=== PATIENT | male | born 1990 | race Caucasian/White ===

== ENCOUNTER 2020-02-18 15:44 | Emergency (ER) | payer OTHER, SELFPAY ==
[2020-02-18 15:51] VITALS: BP 142/74; PULSE 86; RESP 14; TEMP 36.8; O2SAT 99
--- NOTE | 2020-02-18 15:56 | ED.URI ---
HPI - URI/Sore Throat General Chief Complaint: Upper Respiratory Infection Stated Complaint: sinus congestion/headache Time Seen by Provider: 02/18/20 15:56 Source: patient and RN notes reviewed Mode of arrival: ambulatory Limitations: no limitations History of Present Illness HPI Narrative: 21-year-old male presents with concern for frontal nasal pressure, congestion. Denies taking any medications for symptoms. He denies sore throat, ear pain, headache, fever, cough, shortness of breath. Reports mild rhinorrhea. MD elicited complaint: nasal congestion Related Data Home Medications Medication Instructions Recorded Confirmed buspirone 10 mg PO BID 10/06/19 02/18/20 escitalopram oxalate [Lexapro] 10 mg PO DAILY 10/06/19 02/18/20 Allergies Allergy/AdvReac Type Severity Reaction Status Date / Time No Known Allergies Allergy Verified 02/18/20 15:57 Review of Systems Review of Systems: Narrative: CONSTITUTIONAL: Denies malaise, chills, sweats, or fever. EYES: Denies visual changes, redness, or discharge. ENT: Reports rhinorrhea, congestion. Denies sinus pain, otalgia and sore throat. CARDIOVASCULAR: Denies chest pain, palpitations, or edema. RESPIRATORY: Denies cough or dyspnea. GASTROINTESTINAL: Denies abdominal pain, nausea, vomiting, diarrhea SKIN: Denies rash or itching. MUSCULOSKELETAL: Denies myalgia. NEUROLOGIC: Denies headache. All systems reviewed & are unremarkable except as noted in HPI and below PMFSH Past Medical History Medical History (Updated 02/18/20 @ 16:04 by Deya Swanson NP) Anxiety and depression No pertinent family history Ulcer Surgical History Surgical History (Updated 10/14/19 @ 14:02 by EASTON Salmon) H/O removal of cyst from abdominal Social History Social History (Updated 10/14/19 @ 13:54 by EASTON Salmon) Smoking status: Never smoker Comments At time of signature, agree with nursing past medical, surgical, social and family history. There is no relevant family history pertinent to the presenting complaint Exam Narrative: Exam Narrative: GENERAL: Well-appearing, well-nourished, and in no acute distress. HEAD: Normocephalic EYES: PERRLA, conjunctivae clear ENT: Nares clear, turbinates edematous and erythematous, clear discharge. Mucous membranes moist. TM pearly bello with dull light reflex bilaterally; no tragal tenderness. Oropharynx not erythematous without lesions. Tonsils not enlarged and without exudate, no drooling, no hoarseness, no trismus, uvula midline. NECK: Supple. No lymphadenopathy CHEST: Clear to auscultation, breath sounds equal. No wheezing, rhonchi, rales, or stridor. No respiratory distress, speaks in full sentences. HEART: Regular rate and rhythm. No murmur heard. SKIN: Warm, dry, no rash. NEURO: Alert and oriented x3. PSYCH: Normal mood and affect Course Course Emergency Course: Patient is aware of diagnosis, understands and agrees to treatment plan. Anticipatory guidance given. Patient agrees to follow-up as directed and is aware of reasons to seek care at the emergency department. Portions of this record may have been created with voice recognition software Vital Signs Vital signs: Vital Signs Temperature 98.3 F 02/18/20 15:51 Pulse Rate 86 02/18/20 15:51 Respiratory Rate 14 02/18/20 15:51 Blood Pressure 142/74 H 02/18/20 15:51 Pulse Oximetry 99 02/18/20 15:51 Temperature 98.3 F 02/18/20 15:51 Pulse Rate 86 02/18/20 15:51 Respiratory Rate 14 02/18/20 15:51 Blood Pressure 142/74 H 02/18/20 15:51 Pulse Oximetry 99 02/18/20 15:51 Reviewed. MDM - URI/Sore Throat MDM Narrative Medical decision making narrative: Differential diagnosis considered: Strep pharyngitis, allergic rhinitis, upper respiratory tract infection, sinusitis, rhinosinusitis, nasopharyngitis. viral pharyngitis, otitis media, otitis externa, pneumonia, bronchitis, viral cough syndrome, viral syndrome, and influenza. Exam f
== END 2020-02-18 16:11 | disposition home or self-care (01) ==
PROVIDERS: Emergency Provider Nurse Practitioner; PCP Family Medicine
DX: J00 Acute nasopharyngitis [common cold] (principal); J01.90 Acute sinusitis, unspecified; F41.9 Anxiety disorder, unspecified; F32.9 Major depressive disorder, single episode, unspecified
CPT/HCPCS: 99213; G0463

== ENCOUNTER 2020-03-03 11:59 | Emergency (ER) | payer OTHER, SELFPAY ==
[2020-03-03 12:05] VITALS: BP 134/82; PULSE 78; RESP 18; TEMP 37.1; O2SAT 98
--- NOTE | 2020-03-03 12:11 | ED.URI ---
HPI - URI/Sore Throat General Chief Complaint: Upper Respiratory Infection Stated Complaint: sinus pain/pressure Time Seen by Provider: 03/03/20 12:12 Source: patient and RN notes reviewed Mode of arrival: ambulatory Limitations: no limitations History of Present Illness HPI Narrative: 29-year-old male presents with concern for sinus pain, frontal pressure. Reports he was treated for sinusitis on February 17. Reports symptoms improved, however they are now back and have worsened. He denies fever, malaise, cough, body aches, shortness of breath. Reports taking Flonase, azelastine, Zyrtec-D. elicited complaint: nasal congestion Related Data Home Medications Medication Instructions Recorded Confirmed buspirone 10 mg PO BID 10/06/19 03/03/20 escitalopram oxalate [Lexapro] 10 mg PO DAILY 10/06/19 03/03/20 Allergies Allergy/AdvReac Type Severity Reaction Status Date / Time No Known Allergies Allergy Verified 03/03/20 12:16 Review of Systems Review of Systems: Narrative: CONSTITUTIONAL: Denies malaise, chills, sweats, or fever. EYES: Denies visual changes, redness, or discharge. ENT: Reports rhinorrhea, congestion, sinus pain, otalgia. Denies sore throat. CARDIOVASCULAR: Denies chest pain, palpitations, or edema. RESPIRATORY: Denies cough or dyspnea. GASTROINTESTINAL: Denies abdominal pain, nausea, vomiting, diarrhea SKIN: Denies rash or itching. MUSCULOSKELETAL: Denies myalgia. NEUROLOGIC: Reports headache. All systems reviewed & are unremarkable except as noted in HPI and below PMFSH Past Medical History Medical History (Updated 03/03/20 @ 12:18 by Deya Swanson NP) Anxiety and depression No pertinent family history Ulcer Surgical History Surgical History (Updated 10/14/19 @ 14:02 by EASTON Salmon) H/O removal of cyst from abdominal Social History Social History (Updated 10/14/19 @ 13:54 by EASTON Salmon) Smoking status: Never smoker Comments At time of signature, agree with nursing past medical, surgical, social and family history. There is no relevant family history pertinent to the presenting complaint Exam Narrative: Exam Narrative: GENERAL: Well-appearing, well-nourished, and in no acute distress. HEAD: Normocephalic EYES: PERRLA, conjunctivae clear ENT: Nares clear, turbinates edematous and erythematous, sinus tenderness. Mucous membranes moist. TM pearly bello with dull light reflex bilaterally; no tragal tenderness. Oropharynx not erythematous without lesions. Tonsils not enlarged and without exudate, no drooling, no hoarseness, no trismus, uvula midline. NECK: Supple. No lymphadenopathy CHEST: Clear to auscultation, breath sounds equal. No wheezing, rhonchi, rales, or stridor. No respiratory distress, speaks in full sentences. HEART: Regular rate and rhythm. No murmur heard. SKIN: Warm, dry, no rash. NEURO: Alert and oriented x3. PSYCH: Normal mood and affect Course Course Emergency Course: Patient is aware of diagnosis, understands and agrees to treatment plan. Anticipatory guidance given. Patient agrees to follow-up as directed and is aware of reasons to seek care at the emergency department. Portions of this record may have been created with voice recognition software Vital Signs Vital signs: Vital Signs Temperature 98.7 F 03/03/20 12:05 Pulse Rate 78 03/03/20 12:05 Respiratory Rate 18 03/03/20 12:05 Blood Pressure 134/82 03/03/20 12:05 Pulse Oximetry 98 03/03/20 12:05 Temperature 98.7 F 03/03/20 12:05 Pulse Rate 78 03/03/20 12:05 Respiratory Rate 18 03/03/20 12:05 Blood Pressure 134/82 03/03/20 12:05 Pulse Oximetry 98 03/03/20 12:05 Reviewed. Pt has been instructed to follow up with his primary care provider within the next week regarding his elevated blood pressure today. MDM - URI/Sore Throat MDM Narrative Medical decision making narrative: Differential diagnosis considered: Strep pharyngitis, allergic rhinitis, upper
== END 2020-03-03 12:20 | disposition home or self-care (01) ==
PROVIDERS: Emergency Provider Nurse Practitioner; PCP Family Medicine
DX: J32.8 Other chronic sinusitis (principal); B96.89 Other specified bacterial agents as the cause of diseases classified elsewhere; F41.9 Anxiety disorder, unspecified; F32.9 Major depressive disorder, single episode, unspecified
CPT/HCPCS: 99213; G0463

== ENCOUNTER 2020-03-10 13:24 | Emergency (ER) | payer OTHER, SELFPAY ==
[2020-03-10 13:35] VITALS: BP 132/80; PULSE 89; RESP 20; TEMP 36.9; O2SAT 98
== END 2020-03-10 14:20 | disposition home or self-care (01) ==
PROVIDERS: Emergency Provider Nurse Practitioner; PCP Family Medicine
DX: R19.7 Diarrhea, unspecified (principal); F32.9 Major depressive disorder, single episode, unspecified
CPT/HCPCS: 99213; G0463

== ENCOUNTER 2022-02-07 15:50 | Emergency (ER) | payer SELFPAY ==
[2022-02-07 16:01] VITALS: BP 141/81; PULSE 99; RESP 16; TEMP 37.5; O2SAT 98
[2022-02-07 16:07] VITALS: BP 141/81; PULSE 99; RESP 16; TEMP 37.5; O2SAT 98
--- NOTE | 2022-02-07 16:24 | ED.URI ---
HPI - URI/Sore Throat General Chief Complaint: Upper Respiratory Infection Stated Complaint: Sore Throat Time Seen by Provider: 02/07/22 16:08 Source: patient and RN notes reviewed Mode of arrival: ambulatory Limitations: no limitations History of Present Illness HPI Narrative: Patient presents today with a 3-day history of sore throat that is worse in the morning, postnasal drip, sinus pressure and ear pressure. Denies shortness of breath, fever, cough. He currently rates his sore throat 2/10 and has been taking a decongestant with some relief. He is a non-smoker. He has not been vaccinated against COVID-19. MD elicited complaint: nasal congestion and sinus pain Related Data Home Medications Medication Instructions Recorded Confirmed No Home Medications 02/07/22 02/07/22 Allergies Allergy/AdvReac Type Severity Reaction Status Date / Time No Known Allergies Allergy Verified 02/07/22 16:07 Review of Systems Review of Systems: CONSTITUTIONAL: Denies body aches, fever, chills, or sweats. EYES: Denies visual changes, redness, or discharge. ENT: Denies rhinorrhea. + Sore throat, postnasal drip, sinus pressure, congestion, ear pressure CARDIOVASCULAR: Denies chest pain, palpitations, or edema. RESPIRATORY: Denies cough or dyspnea. GASTROINTESTINAL: Denies abdominal pain, nausea, vomiting, or diarrhea. GENITOURINARY: Denies dysuria or hematuria. SKIN: Denies rash, itching, or wounds. MUSCULOSKELETAL: Denies back pain, joint pain, or myalgia. NEUROLOGIC: Denies headache, numbness, tingling, or weakness. PSYCH: Denies depression or anxiety. [facility] Past Medical History Medical History Anxiety and depression No pertinent family history Ulcer Surgical History Surgical History H/O removal of cyst from abdominal Social History Social History Smoking status: Never smoker Comments At time of signature, I have reviewed and agree with nursing past medical, surgical, social and family history unless otherwise noted. Please see nursing chart for further information. There is no relevant family history pertinent to the presenting complaint Exam Narrative: GENERAL: Well-appearing, well-nourished, and in no acute distress. HEAD: Normocephalic, atraumatic. EYES: EOMI. No redness or drainage. Conjunctivae normal. ENT: Mucous membranes pink and moist. Nares clear. No rhinorrhea. TMs normal bilaterally. Throat normal. Uvula midline. NECK: Normal AROM. Supple. No lymphadenopathy. CHEST: No respiratory distress. Clear to auscultation. HEART: Regular rate and rhythm. No murmur appreciated. Normal peripheral pulses. EXTREMITIES: Normal range of motion. No edema. SKIN: Warm, dry, no rash. Capillary refill normal. Normal skin turgor. NEURO: No focal deficits. Alert and oriented x3. Gait steady. PSYCH: Normal affect. No signs of depression or anxiety. Course Course Level of Care: Express Care Visit Vital Signs Vital signs: Vital Signs Temperature 99.5 F 02/07/22 16:01 Pulse Rate 99 02/07/22 16:01 Respiratory Rate 16 02/07/22 16:01 Blood Pressure 141/81 H 02/07/22 16:01 Pulse Oximetry 98 02/07/22 16:01 Temperature 99.5 F 02/07/22 16:07 Pulse Rate 99 02/07/22 16:07 Respiratory Rate 16 02/07/22 16:07 Blood Pressure 141/81 H 02/07/22 16:07 Pulse Oximetry 98 02/07/22 16:07 Reviewed. Pt has been instructed to follow up with his PCP regarding his elevated blood pressure today. MDM - URI/Sore Throat Differential Diagnosis Differential diagnosis: Likely upper respiratory infection, sinusitis, viral infection, pharyngitis and other (Strep throat) Lab Data Attestation: I reviewed the patient's lab results. Labs: Strep Screen Presumptive Negative *(Ref
== END 2022-02-07 16:35 | disposition home or self-care (01) ==
PROVIDERS: Emergency Provider Nurse Practitioner; PCP Family Medicine
DX: J06.9 Acute upper respiratory infection, unspecified (principal); Z28.310 Unvaccinated for COVID-19
CPT/HCPCS: 87081; 87880; 99213; G0463

== ENCOUNTER 2022-07-02 13:47 | Emergency (ER) | payer OTHER, SELFPAY ==
--- NOTE | 2022-07-02 13:49 | ED.URI ---
HPI - URI/Sore Throat General Chief Complaint: Ear Stated Complaint: sore throat ear pressure Time Seen by Provider: 07/02/22 13:49 Source: patient and RN notes reviewed History of Present Illness HPI Narrative: Patient is a 31-year-old male who presents the urgent care with complaints of bilateral ear pressure worse on the right, sore throat and nasal congestion. Patient states he has not taken anything since and symptoms started over the weekend and states that his sore throat improves during the day. Patient states he does sleep with a fan on. States that he has tried Claritin and Zyrtec in the past without any improvement. Patient denies any ill exposures and denies of any fevers, nausea or vomiting. No other acute complaints. No acute distress noted. Patient aware of the plan of care. Some parts of this dictation were generated by voice recognition software and may contain typographical and/or grammatical inaccuracies. Related Data Allergies Allergy/AdvReac Type Severity Reaction Status Date / Time No Known Allergies Allergy Verified 07/02/22 13:57 Review of Systems Review of Systems: CONSTITUTIONAL: Denies fever, chills, or sweats. EYES: Denies visual changes, redness, or discharge. ENT: Reports of nasal congestion, sore throat and otalgia CARDIOVASCULAR: Denies chest pain, palpitations, or edema. RESPIRATORY: Denies cough or dyspnea. GASTROINTESTINAL: Denies abdominal pain, nausea, vomiting, or diarrhea. GENITOURINARY: Denies dysuria or hematuria. SKIN: Denies rash or itching. MUSCULOSKELETAL: Denies back pain, joint pain, or myalgia. NEUROLOGIC: Denies headache, numbness, or weakness. All other systems reviewed are negative, except as documented in HPI. [facility] Past Medical History Medical History Anxiety and depression No pertinent family history Ulcer Surgical History Surgical History H/O removal of cyst from abdominal Social History Social History Smoking status: Never smoker Comments At the time of my signature, I reviewed and agree with the nursing past medical, surgical, social, and family history. There is no relevant family history pertinent to the patient complaint. Exam Narrative: GENERAL: This is a well-nourished, well-developed patient, in no apparent distress. HEAD: normocephalic, atraumatic. EYES: PERRL. Sclera clear/white. Vision is grossly intact. EARS: External ears normal, auditory canals clear and without drainage, mild bilateral station tube dysfunction. TMs normal without perforation. Hearing grossly intact. NOSE: External nose normal with no obvious nasal discharge, nares without redness, no rhinorrhea. THROAT: Mucous membranes moist, posterior pharynx clear. Moderate postnasal drainage NECK: Neck supple, non-tender without lymphadenopathy CARDIOVASCULAR: Regular rate and rhythm without murmurs, gallops, or rubs. RESPIRATORY: Clear to auscultation. Breath sounds equal bilaterally. No wheezes, rales, or rhonchi. SKIN: warm, intact with no suspicious lesions or rash, good texture and turgor. NEURO: awake, alert, and oriented to person, place and time. There were no obvious focal neurologic abnormalities. EXTREMITIES: No clubbing, cyanosis, or edema. Course Course Level of Care: Express Care Visit Vital Signs Vital signs: Vital Signs Temperature 97.6 F 07/02/22 13:58 Pulse Rate 82 07/02/22 13:58 Respiratory Rate 16 07/02/22 13:58 Blood Pressure 143/85 H 07/02/22 13:58 Pulse Oximetry 100 07/02/22 13:58 Oxygen Delivery Room Air 07/02/22 13:58 Temperature 97.6 F 07/02/22 13:58 Pulse Rate 82 07/02/22 13:58 Respiratory Rate 16 07/02/22 13:58 Blood Pressure 143/85 H 07/02/22 13:58 Pulse Oximetry 100 07/02/22 13:58 Oxygen Delivery Room Air 07/02/22 13:58 Re
[2022-07-02 13:58] VITALS: BP 143/85; PULSE 82; RESP 16; TEMP 36.4; O2SAT 100
== END 2022-07-02 14:18 | disposition home or self-care (01) ==
PROVIDERS: Emergency Provider Nurse Practitioner Family; PCP Family Medicine
DX: H69.93 Unspecified Eustachian tube disorder, bilateral (principal)
CPT/HCPCS: 99213; G0463

== ENCOUNTER 2022-10-09 12:56 | Emergency (ER) | payer OTHER, SELFPAY ==
[2022-10-09 13:15] VITALS: BP 144/83; PULSE 92; RESP 16; TEMP 37.1; O2SAT 97
--- NOTE | 2022-10-09 14:28 | ED.URI ---
HPI - URI/Sore Throat General Chief Complaint: Upper Respiratory Infection Stated Complaint: Sore Throat/Fever Time Seen by Provider: 10/09/22 14:28 Source: patient and RN notes reviewed Mode of arrival: ambulatory Limitations: no limitations History of Present Illness HPI Narrative: 31-year-old male presented for complaints of sore throat and headache, body aches, sinus pressure/congestion, cough, fever/chills. onset yesterday. Endorses 1 episode of vomiting this morning. He is taking NyQuil without relief. Denies shortness of breath, wheezing, or abdominal pain. Endorses his daughter is sick with similar symptoms. MD elicited complaint: cough Related Data Allergies Allergy/AdvReac Type Severity Reaction Status Date / Time No Known Allergies Allergy Verified 07/02/22 13:57 Review of Systems Review of Systems: ROS per HPI [facility] Past Medical History Medical History Anxiety and depression No pertinent family history Ulcer Surgical History Surgical History H/O removal of cyst from abdominal Social History Social History Smoking status: Never smoker Exam Narrative: GENERAL: Ill-appearing, nontoxic EYES: PERRLA, conjunctivae clear ENT: Mucous membranes moist. TMs pearly bello with light reflex bilaterally; no tragal tenderness. Oropharynx erythematous without lesions or exudate, no drooling, no hoarseness, no trismus, uvula midline. No tripod positioning, muffled voice, soft palate or pharyngeal wall bulging NECK: Supple. No lymphadenopathy CHEST: Clear to auscultation, breath sounds equal. HEART: Regular rate and rhythm. No murmur heard. SKIN: Warm, dry, no rash. NEURO: Alert and oriented x3. PSYCH: Normal mood and affect Course Course Emergency Course: Patient is aware of diagnosis, understands and agrees to treatment plan. Anticipatory guidance given. Patient agrees to follow-up as directed and is aware of reasons to seek care at the emergency department. Portions of this record may have been created with voice recognition software Level of Care: Express Care Visit Vital Signs Vital signs: Vital Signs Temperature 98.8 F 10/09/22 13:15 Pulse Rate 92 12/06/22 13:15 Respiratory Rate 16 10/09/22 13:15 Blood Pressure 144/83 H 10/09/22 13:15 Pulse Oximetry 97 10/09/22 13:15 Oxygen Delivery Room Air 10/09/22 13:15 Temperature 98.8 F 10/09/22 13:15 Pulse Rate 92 10/09/22 13:15 Respiratory Rate 16 10/09/22 13:15 Blood Pressure 144/83 H 10/09/22 13:15 Pulse Oximetry 97 10/09/22 13:15 Oxygen Delivery Room Air 10/09/22 13:15 reviewed MDM - URI/Sore Throat MDM Narrative Medical decision making narrative: influenza positive. Results reviewed with patient. Advised supportive measures and signs/symptoms to go to the ER. Pt is appropriate for outpt treatment and f/u. Differential Diagnosis Differential diagnosis: Likely upper respiratory infection, sinusitis and viral infection Lab Data Labs: Influenza A Screen Positive Reference Range: Negative Influenza B Screen Negative Reference Range: Negative Discharge Plan Discharge Clinical Impression: Influenza Patient Disposition: Home, Self-Care Condition: Stable Instructions: Influenza (ED) Additional Instructions: Influenza positive You should avoid crowds until you are fever free for 24 hours without the use of fever reducing medications, or the symptoms are improved Rest. Drink plenty of fluids. Tylenol 1000mg every 8 hours as needed for pain/fever Recommend Flonase spray and Zyrtec (or Claritin/Camila) for sinus pressure/congestion over the counter Cough syrup may cause drowsiness; av
== END 2022-10-09 14:36 | disposition home or self-care (01) ==
PROVIDERS: Emergency Provider Nurse Practitioner Family; PCP Family Medicine
DX: J10.1 Influenza due to other identified influenza virus with other respiratory manifestations (principal)
CPT/HCPCS: 87804; 99213; G0463

== ENCOUNTER 2023-09-09 10:31 | Emergency (ER) | payer OTHER, SELFPAY ==
[2023-09-09 10:39] VITALS: BP 147/81; PULSE 89; RESP 20; TEMP 36.9; O2SAT 97
--- NOTE | 2023-09-09 11:25 | ED.NAVMDI ---
HPI - Nausea/Vomiting/Diarrhea General Chief complaint: Nausea/Vomiting/Diarrhea Stated complaint: nausea/diarrhea Source: patient and RN notes reviewed Mode of arrival: ambulatory Limitations: no limitations History of Present Illness HPI Narrative: 32-year-old male presented for complaint of nausea, vomiting, diarrhea since yesterday at 3:00 a.m.. He believes this is related to bad chicken he ate. States the girlfriend told him it tasted weird. Denies abdominal pain, cough, sore throat or fever. Denies hematemesis or hematochezia. Taking Pepto for symptoms. He has been able to tolerate Jell- O. No vomiting or diarrhea today. Related Data Allergies Allergy/AdvReac Type Severity Reaction Status Date / Time No Known Allergies Allergy Verified 09/09/23 10:58 Review of Systems Review of Systems: CONSTITUTIONAL: Denies body aches, fever, chills ENT: Denies rhinorrhea, congestion CARDIOVASCULAR: Denies chest pain, palpitations, or edema. RESPIRATORY: Denies cough or dyspnea. GASTROINTESTINAL: Endorses nausea, vomiting, diarrhea. Denies abdominal pain, hematochezia, melena, hematemesis GENITOURINARY: Denies dysuria, hematuria, or CVA tenderness. SKIN: Denies rash, itching, or wounds. MUSCULOSKELETAL: Denies back pain, joint pain, or myalgia. NEUROLOGIC: Denies headache, numbness, tingling, or weakness. All systems reviewed & are unremarkable except as noted in HPI and below PMFSH Past Medical History Medical History Anxiety and depression No pertinent family history Ulcer Surgical History Surgical History H/O removal of cyst from abdominal Social History Social History Smoking status: Never smoker Comments At time of signature, I have reviewed and agree with nursing past medical, surgical, social and family history unless otherwise noted. Please see nursing chart for further information. There is no relevant family history pertinent to the presenting complaint Exam Narrative: GENERAL: Well-appearing, and in no acute distress. EYES: EOMI. Conjunctivae normal. ENT: Mucous membranes pink and moist. CHEST: No respiratory distress. Clear to auscultation. HEART: Regular rate and rhythm. No murmur appreciated. Normal peripheral pulses. ABDOMEN: abd soft, nondistended, normal active bowel sounds. Nontender abdomen. No guarding, rebound tenderness, asymmetry or rigidity. No pulsatile masses. Negative Collado?s sign. No periumbilical tenderness. No Supra public tenderness or distension. EXTREMITIES: Normal range of motion. No edema. SKIN: Warm, dry, no rash. Capillary refill normal. Normal skin turgor. NEURO: No focal deficits. Alert and oriented x3. PSYCH: Normal affect. Course Course Emergency Course: Patient is aware of diagnosis, understands and agrees to treatment plan. Anticipatory guidance given. Patient agrees to follow-up as directed and is aware of reasons to seek care at the emergency department. Portions of this record may have been created with voice recognition software Level of Care: Express Care Visit Vital Signs Vital signs: Vital Signs Temperature 98.4 F 09/09/23 10:39 Pulse Rate 89 09/09/23 10:39 Respiratory Rate 20 09/09/23 10:39 Blood Pressure 147/81 H 09/09/23 10:39 Pulse Oximetry 97 09/09/23 10:39 Oxygen Delivery Room Air 09/09/23 10:39 Temperature 98.4 F 09/09/23 10:39 Pulse Rate 89 09/09/23 10:39 Respiratory Rate 20 09/09/23 10:39 Blood Pressure 147/81 H 09/09/23 10:39 Pulse Oximetry 97 09/09/23 10:39 Oxygen Delivery Room Air 09/09/23 10:39 MDM - Nausea/Vomiting/Diarrhea MDM Narrative Medical decision making narrative: Discussed physical exam findings. Advised supportive measures and signs/symptoms to go to the ER. Pt is appropriate for outpt
== END 2023-09-09 11:37 | disposition home or self-care (01) ==
PROVIDERS: Emergency Provider Nurse Practitioner Family; PCP Family Medicine
DX: R11.2 Nausea with vomiting, unspecified (principal); R19.7 Diarrhea, unspecified
CPT/HCPCS: 99213; G0463

== ENCOUNTER 2023-10-30 08:56 | Emergency (ER) | payer OTHER, SELFPAY ==
[2023-10-30 09:07] VITALS: BP 130/74; PULSE 110; RESP 18; TEMP 36.9; O2SAT 96
--- NOTE | 2023-10-30 09:33 | ED.GENADULT ---
HPI - General Adult General Chief complaint: Nausea/Vomiting/Diarrhea Stated complaint: nausea/diarrhea Source: patient, RN notes reviewed and old records reviewed Mode of arrival: ambulatory Limitations: no limitations History of Present Illness HPI narrative: 32-year-old male presents to [facility] with complaint of diarrhea that started on Saturday, then today had nausea and vomiting. Patient states a slight sore throat but believes is from vomiting. Patient states kids have strep. MD complaint: Nausea, vomiting, diarrhea Onset (ago): day(s) (4) Related Data Allergies Allergy/AdvReac Type Severity Reaction Status Date / Time No Known Allergies Allergy Verified 10/30/23 09:20 Review of Systems Constitutional: Constitutional: Reports no additional constitutional complaints, Denies body ache(s), Denies chills, Denies fatigue, Denies fever(s) and Denies headache(s) Eyes: Eyes: Reports no additional eye complaints and Denies blurry vision ENT: Reports system reviewed and no additional complaints, except as documented, Denies vertigo, Denies dizziness, Denies ear discharge, Denies otalgia, Denies facial pain, Denies headache(s), Denies nasal congestion, Denies nasal discharge, Denies sinus pain, Denies sinus pressure and Denies sore throat Cardiovascular: Cardiovascular: Reports no additional cardiovascular complaints, Denies chest pain, Denies chest pain at rest, Denies rapid heart rate and Denies dyspnea Respiratory: Respiratory: Reports no additional respiratory complaints, Denies chest congestion, Denies cough, Denies pain on inspiration, Denies pain with cough and Denies dyspnea Gastrointestinal: Gastrointestinal: Denies abdominal pain, Reports diarrhea, Reports nausea and Reports vomiting Integumentary/Breasts: Skin/Breast: Denies rash Neurologic: Reports system reviewed and no additional complaints, except as documented, Denies vertigo, Denies dizziness and Denies headache(s) Endocrine: Endocrine: Denies fatigue PMFSH Past Medical History Medical History Anxiety and depression No pertinent family history Ulcer Surgical History Surgical History H/O removal of cyst from abdominal Social History Social History Smoking status: Never smoker Comments At the time of my signature, I reviewed and agree with the nursing past medical, surgical, social, and family history. There is no relevant family history pertinent to the patient complaint. Exam Const: General: cooperative, healthy appearing, no acute distress and well nourished Nutritional Appearance: well nourished Orientation/consciousness: patient oriented x3 Limitations: no limitations HENMT: Head: normal to inspection and normocephalic Ears: external ears normal, TM's normal bilaterally, mastoids normal and Abnormal EAC present Face/Nose/Sinus: normal facial exam Face and sinus: normal facial exam Mouth: Yes Normal oral and palatal mucosa present, Yes oropharynx normal and Yes moist mucous membranes Throat: tonsils normal, uvula midline, posterior oropharynx abnormal erythema and no uvular edema Eyes: General: appearance normal, both eyes and all related structures Sclera: sclerae normal Pupils: Equal, round and reactive pupils present Resp: Effort & Inspection: normal respiratory effort, able to speak in complete sentences, no audible wheezes, no cough, no respiratory distress and no retractions Auscultation: clear to auscultation bilaterally, no crackles, no rales, no rhonchi and no wheezes Cardio: Rate: regular rate Rhythm: regular rhythm GI: Inspection: normal to inspection GI Palp: No abdominal tenderness, Yes Soft to palpation, No Firmness to palpation present (GI), No Tenderness to palpation present (GI), No Guarding due to palpation present (GI), No Rigid due to palpation
== END 2023-10-30 09:50 | disposition home or self-care (01) ==
PROVIDERS: Emergency Provider Registered Nurse; PCP Family Medicine
DX: J02.0 Streptococcal pharyngitis (principal); Z20.822 Contact with and (suspected) exposure to COVID-19
CPT/HCPCS: 87426; 87804; 87880; 99213; C9803; G0463

== ENCOUNTER 2025-09-10 12:11 | Emergency (ER) | payer OTHER, SELFPAY ==
[2025-09-10 12:22] VITALS: BP 129/75; PULSE 93; RESP 16; TEMP 37.2; O2SAT 97
--- OUTSIDE RECORDS SUMMARY | 2025-09-10 12:28 | XMS_ITS | Clinical Summary ---
Author Organization [facility] Address [address] [place] [address] Care Team Providers Care Knot Borer Name Role Phone Monster Wilson MD Primary Care Provider [phone] Monster Wilson MD Unavailable [phone] Allergies No known active allergies Medications busPIRone (BUSPAR) 10 mg tabletIndications: Anxiety Take 1 tablet (10 mg total) by mouth 2 (two) times a day 60 tablet 5 10/09/20 21 Active Additional Information Patient not taking.Reported on 06/17/2025 escitalopram (LEXAPRO) 10 mg tabletIndications: Anxiety Take 1 tablet (10 mg total) by mouth daily 30 tablet 5 10/09/20 21 Active Additional Information Patient not taking.Reported on 06/17/2025 omeprazole (PriLOSEC) 20 mg capsuleIndications :Gastroesophageal reflux disease without esophagitis Take 1 capsule (20 mg total) by mouth daily 90 capsule 1 10/09/20 21 Active Additional Information Patient not taking.Reported on 06/17/2025 ondansetron ODT (ZOFRAN-ODT) 4 mg disintegrating tablet Take 1 tablet (4 mg total) by mouth every 8 (eight) hours as needed for nausea or vomiting 12 tablet 06/17/20 25 Active Active Problems Problem Noted Date Diagnosed Date Anxiety 10/09/2021 Gastroesophageal reflux disease without esophagi tis 10/07/2019 Assessment & Plan (10/07/2019 1:35 PM [facility]): Recent exacerbation of his GERD. Advised he can use the omeprazole twice a day for the next 2-3 weeks. Advised on a GERD diet and to maintain this for at least the next 2 months. Increase his daily hydration level. Chronic rhinitis 10/07/2019 Assessment & Plan (10/07/2019 1:36 PM [facility]): Continue the use of Flonase and Zyrtec. Symptoms may improve with control of GERD. Dysphagia 02/11/2017 Overview (03/29/2017): Pharyngoesophageal dysphagia Encounters Date Type Department Care Team Description 06/17/2025 11:30 AM CDT Office Visit [facility] [place] [address] [place] [address] Tena Means NP Gastroenteritis (Primary Dx) from Last 3 Months Immunizations Immunization Administration Dates Next Due Influenza, Unspecified 10/09/2021(Deferr ed: Patient Refused),11/07/2020(Deferred: Patient Refused),11/04/2020(Deferred: Patient Refused),01/05/2020(Deferred: Patient Refused),11/04/2019(Deferred: Patient Refused),10/07/2019(Deferred: Patient Refused),07/30/2019(Deferred: Patient Refused),11/04/2018(Deferred: Patient Refused),07/30/2018(Deferred: Patient Refused),11/04/2017(Deferred: Patient Refused),11/04/2017(Deferred: Patient Refused) Tdap 07/30/2018 Medical History Medical History Date Comments Peptic ulceration GERD (gastroesophageal reflux disease) Migraines Anxiety Family History Medical History Relation Name Comments Hypertension Father Hypertension; Other Mother Alive and well; COPD Paternal Grandmother COPD; Heart failure Paternal Grandmother CHF; Relation Name Status Comments Father Mother Alive Paternal Grandmother Social History Tobacco Use Types Packs/Day Years Used Date Smoking Tobacco: Never Smokeless Tobacco: Never Alcohol Use Standard Drinks/Week Comments No 0 (1 standard drink = 0.6 oz pur e alcohol) AUDIT-C Answer Date Recorded Q1: How often do you have a drink containing alc ohol? Never 10/09/2021 Average Number of Drinks Not on file 021 Q3: How often do you have si x or more drinks on one occasion? Never 10/09/2021 PHQ-2 Answer Date Recorded PHQ-2 Total Score (If total score is 3 or more points, staff should administer the PHQ-9) 0 10/09/2021 Sex and Gender Information Value Date Recorded Sex Assigned at Not on file Legal Sex Male 11:50 PM [facility] Gender Identity Not on file Sexual Orientation Not on file Last Filed Vital Signs Vital Sign Reading Time Taken Comments Blood Pressure 132/86 06/17/2025 11:37 AM CDT Pulse 78 06/17/2025 11:37 AM CDT Temperature 36.6 C (97.9 F) 06/17/2025 11:37 AM CDT Respiratory Rate 17 06/17/2025 11:37 AM CDT Oxygen Saturation 97% 06/17/2025 11:37 AM CDT Inhaled Oxygen Concentration - - Weight 80.7 kg (178 lb) 06/17/2025 11:37 AM CDT Height 175.3 cm (5' 9) 06/17/2025 11:37 AM CDT Body Mass Index 26.29 06/17/2025 11:37 AM CDT Plan of Treatment Health Maintenance Due Date Last Done Comments Hepatitis C Screening 1991 Hepatitis B Screening 2009 Regular Well Visit/Exam 18-64 2009 HPV Vaccines (1 - 3-dose SCDM series) 2018 Depression Screening 10/09/2022 10/09/2021, 11/07/2020, 01/05/2020, Additional history exists DTaP/Tdap/Td Vaccine (2 - Td or Tdap) 07/30/2028 07/30/2018 Influenza Vaccine Discontinued Pneumococcal vaccine <65 Aged Out No longer eligible based on patient's age to complete this topic Varicella Vaccines Discontinued Insurance [id number] [employer] [place] [employer] Address: [address] [address] [place] [address] [place] [address] [facility] [place] [employer] [place] [employer] Address: [address] [address] [place] [address] Care Teams Knot Borer Relationship Specialty Start Date End Date Monster Wilson MD [address] [place] [address] PCP - General 03/04/17 Monster Wilson MD [address] [place] [address] 03/04/17
--- NOTE | 2025-09-10 13:54 | ED_ITS ---
HPI - Abdominal Pain General Chief Complaint: Abdominal Pain Stated Complaint: stomach pain/fever Time Seen by Provider: 09/10/25 13:55 Source: patient, RN notes reviewed and old records reviewed Mode of arrival: ambulatory Limitations: no limitations History of Present Illness HPI narrative: 34 year old male presents to [facility] care with complaints of stomach pains all night in mid abdomen region and had 101F temp and chills this morning, Patient states that he has had no nausea or vomiting but has had diarrhea X3 today. Patient reports that he has not taken any OTC medication for his symptoms, denies any urinary symptoms. Patient reports that son was ill earlier this week with similar symptoms and resolved with a day or 2. Patient states that he needs work note stating he can return to work on Saturday. MD elicited complaint: abdominal pain and other (diarrhea, fever snd chills) Pertinent past history: other (gastroenteritis) Onset (ago): day(s) (last night) Location: periumbilical (mid abdomen area) Pain scale (0-10): 3 Quality: aching Radiation: none Migration to: no migration Associated symptoms: diarrhea, fever and chills Treatments prior to arrival: other (none) Related Data Allergies Allergy/AdvReac Type Severity Reaction Status Date / Time No Known Allergies Allergy Verified 09/10/25 12:22 Review of Systems Review of Systems: CONSTITUTIONAL: Reports fever, chills, or sweats. ENT: Denies rhinorrhea, congestion, sore throat, or otalgia. CARDIOVASCULAR: Denies chest pain, palpitations, or edema. RESPIRATORY: Denies cough or dyspnea. GASTROINTESTINAL: Reports abdominal pain mid abdomen with no migration, no, nausea, no vomiting, positive for diarrhea. GENITOURINARY: Denies dysuria or hematuria. SKIN: Denies rash or itching. MUSCULOSKELETAL: Denies back pain, joint pain, or myalgia. NEUROLOGIC: Denies headache, numbness, or weakness. All systems reviewed & are unremarkable except as noted in HPI and below PMFSH Past Medical History Medical History (Updated 09/11/25 @ 16:56 by Mihaela Agarwal APRN) Gastroenteritis Anxiety and depression Ulcer No pertinent family history Surgical History Surgical History H/O removal of cyst from abdominal Social History Social History (Updated 09/11/25 @ 16:56 by Mihaela Agarwal APRN) Additional smoking assessment comments: no tobacco use Alcohol intake: current Alcohol use details: rare Substance use type: does not use Living arrangements: with family Gender identity (if verbalized by the patient): Male Comments At time of signature, agree with nursing past medical, surgical, social and family history. There is no relevant family history pertinent to the presenting complaint Exam Narrative: GENERAL: Well-appearing, well-nourished, and in no acute distress. HEAD: Normocephalic, atraumatic. EYES: PERRLA, conjunctivae clear, and EOMI. ENT: Nares clear. Mucous membranes moist. Oropharynx without edema, erythema, or lesions. Tonsils not enlarged and without exudate. NECK: Supple. No lymphadenopathy CHEST: Speaks in full sentences. No respiratory distress.SAO2 97% on room air HEART: Regular rate and rhythm. ABDOMEN: Soft, flat, nondistended. No guarding, rebound tenderness, or rigid. No pulsatilla masses. Bowel sounds present in all four quadrants. No organomegaly. Negative Collado?s sign.+ periumbilical tenderness.No McBurney point tenderness No Supra public tenderness or distension. Good femoral pulses bilaterally. No hernia noted. No scars or surface trauma.denies any nausea or vomiting positive for diarrhea. SKIN: Warm, dry, no rash. NEURO:? Alert and oriented x3. PSYCH: Normal mood and affect Course Course Emergency Course: Patient is aware of diagnosis, understands and agrees to treatment plan.? Anticipatory guidance given.? Patient agrees to follow-up as directed and is aware of reasons to seek care at the emergency department. Portions of this record may have been created with voice recognition software Level of Care: Express Care Visit Vital Signs Vital signs: Vital Signs Temperature 37.2 C 09/10/25 12:22 Pulse Rate 93 09/10/25 12:22 Respiratory Rate 16 09/10/25 12:22 Blood Pressure 129/75 09/10/25 12:22 Pulse Oximetry 97 09/10/25 12:22 Oxygen Delivery Room Air 09/10/25 12:22 Temperature 37.2 C 09/10/25 12:22 Pulse Rate 93 09/10/25 12:22 Respiratory Rate 16 09/10/25 12:22 Blood Pressure 129/75 09/10/25 12:22 Pulse Oximetry 97 09/10/25 12:22 Oxygen Delivery Room Air 09/10/25 12:22 Reviewed MDM - Abdominal Pain MDM Narrative Medical decision making narrative: No evidence of pancreatitis, AAA, cholecystitis, choledocholithiasis, cholangitis, mesenteric ischemia, small bowel obstruction, diverticulitis, colitis, appendicitis, or pelvic etiology such as ovarian/testicular torsion, TOA, or ectopic .? Patient has no history of peptic ulcer, H. pylori, chronic aspirin NSAID or corticosteroid use, chronic alcohol use, no history of inflammatory bowel disease, no history of active abdominal infection or m alignancy.? Patient has no history of hernia or intra-abdominal surgeries, patient denies absence of flatus, constipation, melena, hematemesis. Patient denies post-prandial pain. No pain-out of proportion. Exam findings show no acute concerns or changes; patient is non-toxic appearing and is in no distress.? Patient is appropriate for outpatient treatment and follow-up. Differential Diagnosis Differential diagnosis: Likely abdominal pain, gastroenteritis and other (viral infection) Medical Records Attestation: I reviewed the patient's medical records. Critical Care Time Critical Care Time Critical Care Time: No Discharge Plan Discharge Clinical Impression: Gastroenteritis Patient Disposition: Home Condition: Stable Instructions: Clear Liquid Diet (ED), Gastroenteritis (ED) Additional Instructions: Clear liquids for the next 8-10 hours, then advance to a bland diet as tolerated A bland diet can consist of--BRAT diet which is bananas, rice, applesauce, and toast Avoid fried, greasy, fatty, fried foods Avoid caffeine, nicotine, and alcohol Return to your regular diet in the next 3-4 days Medication as directed for nausea and vomiting Sometimes ibuprofen/Aleve can cause increased stomach upset [id number] Imodium if develop diarrhea Follow-up with her PCP if continued problems or uncontrolled pain If your symptoms persist, change or worsen significantly before you can contact your personal physician then please, without delay, go to the emergency department for further evaluation. Follow-up with PCP in 7-10 days or sooner if needed Follow up with PCP soon in regards to your blood pressure which is elevated above threshold for referral. Blood pressure above 120/80 may indicate pre-hypertension. 129/75 minimal elevation Patient Language: Luxembourgish Follow-up/Referrals: Harms,Monster Marcus M.D. [Primary Care Provider] Stand Alone Forms: Work/School Release IP Time of Disposition: 14:45 Quality Jae Coma Scale Eyes: Open Verbal: Oriented and Alert Motor: Follows Commands Jae Coma Total Score: 15
== END 2025-09-10 14:51 | disposition home or self-care (01) ==
PROVIDERS: Emergency Provider Registered Nurse; PCP Family Medicine
DX: K52.9 Noninfective gastroenteritis and colitis, unspecified (principal)
CPT/HCPCS: 99211; G0463